=== PATIENT | female | born 1990 | race Caucasian/White ===

== ENCOUNTER → 2018-10-10 13:49 | Outpatient (CLI) | payer MEDICAID, SELFPAY | PROVIDERS: Referring Provider Obstetrics & Gynecology; Visit Provider Obstetrics & Gynecology | DX: Z01.818 Encounter for other preprocedural examination (principal) ==

== ENCOUNTER → 2020-03-19 17:41 | Outpatient (CLI) | payer MEDICAID, SELFPAY ==
[2015-07-15 09:20] VITALS: BMI 25.7
[2020-03-24 16:08] LABS: Age Gdln ACOG Testing 21-29 (.)
[2020-03-24 19:49] LABS: HPV Reflexed? NOT INDICATED
== END ==
PROVIDERS: Referring Provider Obstetrics & Gynecology; Visit Provider Obstetrics & Gynecology
DX: Z12.4 Encounter for screening for malignant neoplasm of cervix (principal)
CPT/HCPCS: 88175; G0145